=== PATIENT | male | born 1965 | race Caucasian/White ===

== ENCOUNTER 2022-05-29 16:03 | Inpatient (IN) | payer OTHER ==
[2022-05-29 19:08] VITALS: BMI 27.1
[2022-05-29] MEDS ORDERED: DICYCLOMINE HCL 10 MG CAPSULE PO PRN (21:04)
[2022-05-29] MEDS ORDERED: ONDANSETRON *ODT* 4 MG TABLET SL PRN (21:04)
[2022-05-29] MEDS ORDERED: MAGNESIUM CITRATE 300 ML BOTTLE PO PRN (21:04)
[2022-05-29] MEDS ORDERED: BENZOCAINE/MENTHOL (CHLORASEPTIC ) LOZENGE MM PRN (21:04)
[2022-05-29] MEDS ORDERED: MAG HYDROX/AL HYDROX/SIMETH 30 ML UNIT-DOSE CUP PO PRN (21:04)
[2022-05-29] MEDS ORDERED: LOPERAMIDE HCL 2 MG CAPSULE PO PRN (21:04)
[2022-05-29] MEDS ORDERED: MAGNESIUM HYDROX 2400MG/30ML ORAL SUSPENSION 30 ML CUP PO PRN (21:04)
[2022-05-30] MEDS: THIAMINE HCL 100 MG TABLET (FP) PO SCH ×2 (03:37→22:15)
[2022-05-30] MEDS: MELATONIN 5 MG TABLETS PO SCH ×2 (03:37→22:15)
[2022-05-30] MEDS: diazePAM 5 MG TABLET PO SCH ×4 (05:23→22:15)
[2022-05-30] MEDS: PRENATAL VITAMINS W/ FOLIC ACID TABLET (FP) PO SCH (10:26)
[2022-05-31] MEDS: diazePAM 5 MG TABLET PO SCH ×3 (06:20→22:01)
[2022-05-31] MEDS: diazePAM 5 MG TABLET PO PRN (10:19)
[2022-05-31] MEDS: METHOCARBAMOL 500 MG TABLET PO PRN ×2 (10:20→17:40)
[2022-05-31] MEDS: PRENATAL VITAMINS W/ FOLIC ACID TABLET (FP) PO SCH (10:22)
[2022-05-31 12:29] LABS: HEMATOCRIT 41.4 % (35.4-49); HEMOGLOBIN 14.1 GM/dL (11.7-16.9); MCH 31.5 pg (25.7-33.7); MEAN CELL VOLUME 92.6 fl (80-96); PLATELET COUNT 127 10^3/uL (134-434); RBC 4.47 M/mm3 (4.00-5.60); RDW 14.4 % (11.9-15.9); WHITE BLOOD COUNT 5.2 K/mm3 (4.0-10.0)
[2022-05-31 15:37] LABS: CALCIUM 8.3 mg/dL (8.5-10.1)
[2022-05-31 15:38] LABS: ALBUMIN 3.1 g/dl (3.4-5.0); BLOOD UREA NITROGEN 8.1 mg/dL (7-18)
[2022-05-31 15:42] LABS: BILIRUBIN,TOTAL 0.9 mg/dL (0.2-1); TOT PROT 6.2 g/dl (6.4-8.2)
[2022-05-31] MEDS ORDERED: POTASSIUM CHLORIDE ORAL LIQUID 20 MEQ/15 ML PO ONE (16:36)
[2022-05-31] MEDS: POTASSIUM CHLORIDE ORAL LIQUID 20 MEQ/15 ML PO SCH (22:01)
[2022-05-31] MEDS: THIAMINE HCL 100 MG TABLET (FP) PO SCH (22:02)
[2022-05-31] MEDS: MELATONIN 5 MG TABLETS PO SCH ×2 (22:02→22:04)
[2022-06-01] MEDS: diazePAM 5 MG TABLET PO SCH ×2 (05:24→18:10)
[2022-06-01] MEDS: diazePAM 5 MG TABLET PO PRN (08:57)
[2022-06-01] MEDS ORDERED: POTASSIUM CHLORIDE TABS 20 MEQ TABLET.ER (FP) PO ONE (10:07)
[2022-06-01] MEDS: POTASSIUM CHLORIDE ORAL LIQUID 20 MEQ/15 ML PO SCH ×2 (10:37→22:42)
[2022-06-01] MEDS: METHOCARBAMOL 500 MG TABLET PO PRN ×2 (10:39→18:12)
[2022-06-01] MEDS: PRENATAL VITAMINS W/ FOLIC ACID TABLET (FP) PO SCH (10:39)
[2022-06-01] MEDS: MELATONIN 5 MG TABLETS PO SCH (22:41)
[2022-06-01] MEDS: THIAMINE HCL 100 MG TABLET (FP) PO SCH (22:42)
[2022-06-02] MEDS ORDERED: diazePAM 5 MG TABLET PO ONE (06:00)
[2022-06-02 09:08] VITALS: BP 137/98; PULSE 86; RESP 16; TEMP 97.3
[2022-06-02] MEDS: PRENATAL VITAMINS W/ FOLIC ACID TABLET (FP) PO SCH (10:11)
== END 2022-06-02 11:45 | disposition home or self-care (01) | DRG 775 ==
LOC: YASAS 16:03 → Y3N 21:22
PROVIDERS: ADMIT Allergy & Immunology; ATTEND Surgery
PROC: HZ2ZZZZ Detoxification Services for Substance Abuse Treatment (ICD-10-PCS; principal; 2022-05-29)
DX: F10.230 Alcohol dependence with withdrawal, uncomplicated (principal); F32.A Depression, unspecified; F41.9 Anxiety disorder, unspecified; G47.30 Sleep apnea, unspecified; L40.9 Psoriasis, unspecified; R56.9 Unspecified convulsions; S09.90XA Unspecified injury of head, initial encounter; W01.10XA Fall on same level from slipping, tripping and stumbling with subsequent striking against unspecified object, initial encounter; Y92.039 Unspecified place in apartment as the place of occurrence of the external cause; Z88.6 Allergy status to analgesic agent; Z88.8 Allergy status to other drugs, medicaments and biological substances
CPT/HCPCS: 36415; 80053; 82962; 83036; 85027; 86780; 93005; 93010; C9803-CS; U0003; U0005

== ENCOUNTER 2022-05-29 23:45 | Emergency (ER) | payer OTHER ==
[2022-05-29 23:52] VITALS: BP 145/86; PULSE 95; TEMP 98.9; BMI 27.1
[2022-05-30] MEDS ORDERED: diazePAM 5 MG TABLET PO ONE (00:10)
[2022-05-30] MEDS ORDERED: DIPHTH,PERTUSS(ACELL),TET 0.5 ML DISP.SYRIN IM ONE ×2 (00:13→00:53)
[2022-05-30] MEDS ORDERED: THIAMINE HCL 200 MG/2 ML VIAL IM ONE (00:16)
[2022-05-30] MEDS ORDERED: THIAMINE HCL 200 MG/2 ML VIAL ONE (00:52)
[2022-05-30] MEDS ORDERED: diazePAM 5 MG TABLET ONE (00:52)
== END 2022-05-30 01:22 | disposition home or self-care (01) ==
LOC: JER 23:45
PROC: 3E023GC Introduction of Other Therapeutic Substance into Muscle, Percutaneous Approach (ICD-10-PCS; principal; 2022-05-29)
PROC: 3E0234Z Introduction of Serum, Toxoid and Vaccine into Muscle, Percutaneous Approach (ICD-10-PCS; principal; 2022-05-29)
DX: F10.239 Alcohol dependence with withdrawal, unspecified (principal); W19.XXXA Unspecified fall, initial encounter
CPT/HCPCS: 70450-TC; 90471; 90715; 96372; 99284-25